=== PATIENT | female | born 1955 | race African-American/Black ===

== ENCOUNTER → 2017-06-07 | Outpatient (CLI) | payer MEDICARE, MEDICAID ==
[~2017-06-07] MED LIST: ATOR20TA65 PO; CINA30 PO; CYAN10009 PO; FOLI-43 PO; FOLI1TAB63 PO; KEPP500 PO; LAMO100T PO; MIRT15TA6 PO; NEPVIT PO; REQ1 PO; VIT B 12
== END | disposition home or self-care (01) ==
LOC: MAMMO 09:14
PROVIDERS: ATTEND Specialist
DX: Z12.31 Encounter for screening mammogram for malignant neoplasm of breast (principal)
CPT/HCPCS: G0202

== ENCOUNTER → 2017-06-23 | Outpatient (CLI) | payer MEDICARE, MEDICAID | END | disposition home or self-care (01) | LOC: MAMMO 07:49 | PROVIDERS: ATTEND Specialist | DX: R92.8 Other abnormal and inconclusive findings on diagnostic imaging of breast (principal); R92.2 Inconclusive mammogram | CPT/HCPCS: 76641; G0206 ==

== ENCOUNTER 2018-09-26 09:18 | Inpatient (IN) | payer MEDICARE, MEDICAID ==
[~2018-09-26] VITALS: Ht 170.2 cm; Wt 47.0 kg
[~2018-09-26 09:18] MED LIST changes: +ASPI-1159 PO; -FOLI-43 PO; -NEPVIT PO; -VIT B 12
[2018-09-26 11:35] LABS: BASOPHILS % 0.5 % (0.0-2.0); EOSINOPHILS % 1.4 % (0.0-5.0); HEMOGLOBIN. 12.1 g/dL (12.0-16.0); LYMPHOCYTES % 13.7 % (20.0-50.0); MEAN CORPUSCULAR HEMOGLOBIN 30.9 pg (28.0-32.0); MEAN CORPUSCULAR VOLUME 94.6 fL (81.0-99.0); MEAN PLATELET VOLUME 8.5 fl (7.4-10.4); MONOCYTES % 9.9 % (2.0-8.0); NEUTROPHILS % 74.5 % (40.0-76.0); PLATELET 127 x1000/uL (130-400); RED BLOOD CELL COUNT 3.91 mill/uL (4.2-5.4)
[2018-09-26 11:36] LABS: CHLORIDE 99 mEq/L (98-107)
[2018-09-26] MEDS ORDERED: DILTIAZEM HCL 5MG/ML 5ML VIAL IV PRN (15:00)
[2018-09-26 15:06] LABS: INR 1.2; PARTIAL THROMBOPLASTIN TIME 35.9 sec (23.4-31.0); PROTHROMBIN TIME 12.2 sec (9.1-11.1)
[2018-09-26] MEDS ORDERED: ONDANSETRON HCL 4MG/2ML INJ IV PRN (16:15)
[2018-09-26] MEDS ORDERED: ACETAMINOPHEN 325MG TABLET PO PRN (16:15)
[2018-09-26] MEDS ORDERED: LEVETIRACETAM 500MG PREMIX 100 ML IV ONE (16:15)
[2018-09-26 18:00] VITALS: BP 140/64
[2018-09-26] MEDS ORDERED: SEVELAMER CARBONATE 800 MG TABLET PO SCH (18:10)
[2018-09-26 18:37] VITALS: BP 140/64
[2018-09-26] MEDS ORDERED: LEVETIRACETAM 500MG in SODIUM CHLORIDE 0.9% 100ML IV NR (18:45)
[2018-09-26 19:17] LABS: HEMATOCRIT 37.9 % (36.0-48.0)
[2018-09-26 20:00] VITALS: BP 121/69
[2018-09-26] MEDS: LEVETIRACETAM 500MG TABLET PO SCH (21:06)
[2018-09-26] MEDS: ATORVASTATIN CALCIUM 20MG TABLET PO SCH (21:06)
[2018-09-26] MEDS: LAMOTRIGINE 100MG TABLET PO SCH (21:06)
[2018-09-26] MEDS: PANTOPRAZOLE SODIUM 40 MG/VIAL IV SCH (21:06)
[2018-09-26] MEDS: DILTIAZEM HCL 60MG TABLET PO SCH (21:06)
[2018-09-26] MEDS: ROPINIROLE HCL 1MG TABLET PO SCH (21:06)
[2018-09-27 00:05] VITALS: BP 109/56
[2018-09-27 04:00] VITALS: BP 109/82
[2018-09-27] MEDS: DILTIAZEM HCL 60MG TABLET PO SCH (05:42)
[2018-09-27] MEDS: ROPINIROLE HCL 1MG TABLET PO SCH ×2 (05:43→23:12)
[2018-09-27 06:24] LABS: BASOPHILS % 0.4 % (0.0-2.0); EOSINOPHILS % 2.3 % (0.0-5.0); HEMOGLOBIN. 11.6 g/dL (12.0-16.0); LYMPHOCYTES % 18.3 % (20.0-50.0); MEAN CORPUSCULAR HEMOGLOBIN 30.6 pg (28.0-32.0); MEAN CORPUSCULAR VOLUME 94.6 fL (81.0-99.0); MEAN PLATELET VOLUME 8.1 fl (7.4-10.4); MONOCYTES % 11.6 % (2.0-8.0); NEUTROPHILS % 67.4 % (40.0-76.0); PLATELET 132 x1000/uL (130-400); RED BLOOD CELL COUNT 3.81 mill/uL (4.2-5.4); RED CELL DISTRIBUTION WIDTH 18.8 % (11.6-14.6)
[2018-09-27 06:29] LABS: PHOSPHORUS 3.5 mg/dL (2.5-4.9)
[2018-09-27 08:00] VITALS: BP 123/71
[2018-09-27] MEDS: LAMOTRIGINE 100MG TABLET PO SCH ×2 (08:47→23:10)
[2018-09-27] MEDS: LEVETIRACETAM 500MG TABLET PO SCH ×2 (08:47→18:50)
[2018-09-27] MEDS: PANTOPRAZOLE SODIUM 40 MG/VIAL IV SCH ×2 (09:00→23:10)
[2018-09-27] MEDS ORDERED: PANTOPRAZOLE SODIUM 40 MG/VIAL IV SCH (09:00)
[2018-09-27 12:00] VITALS: BP 126/73
[2018-09-27] MEDS: DILTIAZEM HCL 30MG TABLET PO SCH ×2 (15:17→23:09)
[2018-09-27 16:00] VITALS: BP 133/73
[2018-09-27] MEDS ORDERED: SORBITOL 70% SOLN 30ML PO NR ×4 (16:00→22:00)
[2018-09-27 19:24] LABS: HEMATOCRIT 36.7 % (36.0-48.0); HEMOGLOBIN 11.9 g/dL (12.0-16.0)
[2018-09-27] MEDS ORDERED: SORBITOL 70% SOLN 30ML PO ONE (22:00)
[2018-09-27] MEDS: ATORVASTATIN CALCIUM 20MG TABLET PO SCH (23:10)
[2018-09-28] VITALS: BP 140/60
[2018-09-28 02:07] LABS: HEMATOCRIT 37.4 % (36.0-48.0); HEMOGLOBIN 12.1 g/dL (12.0-16.0)
[2018-09-28 04:00] VITALS: BP 122/73
[2018-09-28] MEDS ORDERED: SORBITOL 70% SOLN 30ML PO NR (05:00)
[2018-09-28] MEDS: DILTIAZEM HCL 30MG TABLET PO SCH ×3 (06:00→21:20)
[2018-09-28 06:44] LABS: INR 1.2; PARTIAL THROMBOPLASTIN TIME 34.7 sec (23.4-31.0); PROTHROMBIN TIME 12.1 sec (9.1-11.1)
[2018-09-28 06:51] LABS: BASOPHILS % 0.3 % (0.0-2.0); EOSINOPHILS % 1.8 % (0.0-5.0); HEMATOCRIT. 37.4 % (36.0-48.0); HEMOGLOBIN. 11.9 g/dL (12.0-16.0); LYMPHOCYTES % 12.9 % (20.0-50.0); MEAN CORPUSCULAR HEMOGLOBIN 30.2 pg (28.0-32.0); MEAN CORPUSCULAR VOLUME 95.1 fL (81.0-99.0); MONOCYTES % 11.3 % (2.0-8.0); NEUTROPHILS % 73.7 % (40.0-76.0); PLATELET 145 x1000/uL (130-400); RED BLOOD CELL COUNT 3.94 mill/uL (4.2-5.4); RED CELL DISTRIBUTION WIDTH 18.8 % (11.6-14.6)
[2018-09-28 07:03] LABS: PHOSPHORUS 3.4 mg/dL (2.5-4.9)
[2018-09-28] MEDS: LEVETIRACETAM 500MG TABLET PO SCH ×2 (08:50→17:38)
[2018-09-28] MEDS: LAMOTRIGINE 100MG TABLET PO SCH ×2 (08:50→21:24)
[2018-09-28] MEDS ORDERED: DILTIAZEM HCL 5MG/ML 5ML VIAL IV PRN (09:15)
[2018-09-28] MEDS: PANTOPRAZOLE SODIUM 40 MG/VIAL IV SCH (10:49)
[2018-09-28 11:41] VITALS: BP 131/70
[2018-09-28] MEDS ORDERED: SIMETHICONE 40 MG/0.6 ML 30ML ONE (12:36)
[2018-09-28] MEDS ORDERED: FENTANYL CITRATE/PF 50MCG/ML 2ML VIAL IV PRN (14:33)
[2018-09-28] MEDS ORDERED: MIDAZOLAM HCL 5 MG/5 ML VIAL IV PRN (14:34)
[2018-09-28] MEDS ORDERED: FENTANYL CITRATE/PF 50MCG/ML 2ML VIAL ONE (14:37)
[2018-09-28] MEDS ORDERED: MIDAZOLAM HCL 5 MG/5 ML VIAL ONE (14:37)
[2018-09-28] MEDS ORDERED: SODIUM CHLORIDE 0.9% 10ML VIAL ONE (15:38)
[2018-09-28 16:00] VITALS: BP 106/62
[2018-09-28] MEDS: ATORVASTATIN CALCIUM 20MG TABLET PO SCH (21:24)
[2018-09-28] MEDS: ROPINIROLE HCL 1MG TABLET PO SCH (21:24)
[2018-09-29 04:00] VITALS: BP 126/79
[2018-09-29 06:00] VITALS: BP 117/73
[2018-09-29] MEDS: DILTIAZEM HCL 30MG TABLET PO SCH ×2 (06:00→15:29)
[2018-09-29 07:01] LABS: BASOPHILS % 0.7 % (0.0-2.0); EOSINOPHILS % 2.9 % (0.0-5.0); HEMATOCRIT. 35.4 % (36.0-48.0); HEMOGLOBIN. 11.6 g/dL (12.0-16.0); LYMPHOCYTES % 17.6 % (20.0-50.0); MEAN CORPUSCULAR HEMOGLOBIN 31.1 pg (28.0-32.0); MEAN CORPUSCULAR VOLUME 95.2 fL (81.0-99.0); MONOCYTES % 13.2 % (2.0-8.0); NEUTROPHILS % 65.6 % (40.0-76.0); PLATELET 138 x1000/uL (130-400); RED BLOOD CELL COUNT 3.72 mill/uL (4.2-5.4)
[2018-09-29] MEDS ORDERED: OMEPRAZOLE 20MG CAPSULE EXTENDED RELEASE PO SCH (07:40)
[2018-09-29] MEDS: LAMOTRIGINE 100MG TABLET PO SCH (09:15)
[2018-09-29] MEDS: LEVETIRACETAM 500MG TABLET PO SCH (09:15)
[2018-09-29 10:00] VITALS: BP 124/78
[2018-09-29 12:00] VITALS: BP 134/69
[2018-09-29 15:38] VITALS: BP 134/69
== END 2018-09-29 16:32 | disposition home or self-care (01) | DRG 377 ==
LOC: ER 09:18 → 7WST 12:18 → EDBEDREQ 12:23 → EDBEDREQTM 12:23 → ENRESERV 16:51
PROVIDERS: ADMIT Internal Medicine; ATTEND Internal Medicine
PROC: 5A1D70Z Performance of Urinary Filtration, Intermittent, Less than 6 Hours Per Day (ICD-10-PCS; principal; 2018-09-26)
PROC: 5A1D70Z Performance of Urinary Filtration, Intermittent, Less than 6 Hours Per Day (ICD-10-PCS; 2018-09-28)
PROC: 0DB68ZX Excision of Stomach, Via Natural or Artificial Opening Endoscopic, Diagnostic (ICD-10-PCS; 2018-09-28)
PROC: 0DJD8ZZ Inspection of Lower Intestinal Tract, Via Natural or Artificial Opening Endoscopic (ICD-10-PCS; 2018-09-28)
DX: K29.01 Acute gastritis with bleeding (principal); N18.6 End stage renal disease; I13.2 Hypertensive heart and chronic kidney disease with heart failure and with stage 5 chronic kidney disease, or end stage renal disease; I42.9 Cardiomyopathy, unspecified; Z68.1 Body mass index [BMI] 19.9 or less, adult; D64.9 Anemia, unspecified; D69.6 Thrombocytopenia, unspecified; E66.9 Obesity, unspecified; E78.5 Hyperlipidemia, unspecified; E83.39 Other disorders of phosphorus metabolism; F32.9 Major depressive disorder, single episode, unspecified; G25.81 Restless legs syndrome; E83.51 Hypocalcemia; I95.9 Hypotension, unspecified; G40.909 Epilepsy, unspecified, not intractable, without status epilepticus; I25.10 Atherosclerotic heart disease of native coronary artery without angina pectoris; I48.91 Unspecified atrial fibrillation; I49.5 Sick sinus syndrome; I50.9 Heart failure, unspecified; K57.31 Diverticulosis of large intestine without perforation or abscess with bleeding; M19.011 Primary osteoarthritis, right shoulder; M19.012 Primary osteoarthritis, left shoulder; Z79.01 Long term (current) use of anticoagulants; Z79.82 Long term (current) use of aspirin; Z79.899 Other long term (current) drug therapy; Z82.41 Family history of sudden cardiac death; Z82.49 Family history of ischemic heart disease and other diseases of the circulatory system; Z86.73 Personal history of transient ischemic attack (TIA), and cerebral infarction without residual deficits; Z90.49 Acquired absence of other specified parts of digestive tract; Z95.0 Presence of cardiac pacemaker
CPT/HCPCS: 36415; 71045; 72100; 78278; 80048; 80076; 82270; 83735; 84100; 85014; 85018; 85044; 86850; 86900; 88305; 88312; 88313; 93306; 96372; 99152; 99285; A9560; C9113; J1953; J2250; J3010; J7050; G0500

== ENCOUNTER 2018-11-01 08:47 | Inpatient (IN) | payer MEDICARE, MEDICAID ==
[~2018-11-01] VITALS: Ht 170.2 cm; Wt 108.9 kg
[~2018-11-01 08:47] MED LIST changes: -ASPI-1159 PO
[2018-11-01] MEDS ORDERED: IPRATROPIUM BROMIDE (0.02%) 0.5MG/2.5ML NEB HHN STA (14:24)
[2018-11-01] MEDS: ALBUTEROL (0.083%) 2.5MG/3ML NEB HHN SCH ×3 (14:30→15:26)
[2018-11-01 15:15] LABS: HEMATOCRIT. 35.4 % (36.0-48.0); HEMOGLOBIN. 11.6 g/dL (12.0-16.0); MEAN CORPUSCULAR HEMOGLOBIN 30.2 pg (28.0-32.0); MEAN CORPUSCULAR VOLUME 92.5 fL (81.0-99.0); MEAN PLATELET VOLUME 7.4 fl (7.4-10.4); PLATELET 114 x1000/uL (130-400); RED BLOOD CELL COUNT 3.83 mill/uL (4.2-5.4); RED CELL DISTRIBUTION WIDTH 16.5 % (11.6-14.6)
[2018-11-01 15:17] LABS: INR 1.2; PROTHROMBIN TIME 11.7 sec (9.1-11.1)
[2018-11-01 15:18] LABS: CHLORIDE 95 mEq/L (98-107)
[2018-11-01] MEDS ORDERED: ASPIRIN 81MG TABLET PO ONE (15:45)
[2018-11-01 16:03] LABS: PLATELET ESTIMATE DECREASED
[2018-11-01] MEDS ORDERED: MORPHINE SULFATE 4 MG/ML CPJ (NOT FOR IM USE) IV ONE (18:15)
[2018-11-01 22:45] VITALS: BP 118/71
[2018-11-02] VITALS (7 sets, daily range): BP systolic 98–129; BP diastolic 42–76
[2018-11-02] MEDS ORDERED: IPRATROPIUM/ALBUTEROL 0.5-3(2.5)MG/3ML NEB HHN PRN ×2 (07:00→14:00)
[2018-11-02] MEDS: FOLIC ACID/VITAMIN B COMP W-C TABLET PO SCH (09:51)
[2018-11-02] MEDS: CINACALCET HCL 60MG TABLET PO SCH (09:51)
[2018-11-02] MEDS: LAMOTRIGINE 100MG TABLET PO SCH ×2 (09:51→17:21)
[2018-11-02] MEDS: SEVELAMER CARBONATE 800 MG TABLET PO SCH ×3 (09:51→17:21)
[2018-11-02] MEDS: LEVETIRACETAM 500MG TABLET PO SCH ×2 (09:51→21:11)
[2018-11-02 10:03] LABS: HEMATOCRIT. 33.7 % (36.0-48.0); HEMOGLOBIN. 11.1 g/dL (12.0-16.0); MEAN CORPUSCULAR HEMOGLOBIN 30.2 pg (28.0-32.0); MEAN CORPUSCULAR VOLUME 92.1 fL (81.0-99.0); MEAN PLATELET VOLUME 7.8 fl (7.4-10.4); PLATELET 122 x1000/uL (130-400); RED BLOOD CELL COUNT 3.66 mill/uL (4.2-5.4); RED CELL DISTRIBUTION WIDTH 16.4 % (11.6-14.6)
[2018-11-02 10:12] LABS: CHLORIDE 95 mEq/L (98-107)
[2018-11-02 10:20] LABS: PHOSPHORUS 5.8 mg/dL (2.5-4.9)
[2018-11-02] MEDS: GUAIFENESIN 200MG/10ML SUGAR FREE UDC PO PRN ×2 (10:26→17:20)
[2018-11-02] MEDS: AZITHROMYCIN 250 MG TABLET PO SCH (12:19)
[2018-11-02 14:50] LABS: PLATELET ESTIMATE SLIGHTLY DECREASED
[2018-11-02] MEDS: ATORVASTATIN CALCIUM 20MG TABLET PO SCH (21:11)
[2018-11-02] MEDS: GUAIFENESIN 600MG ER TABLET PO SCH (21:11)
[2018-11-02] MEDS: HEPARIN 5000 UNITS/ML VIAL SUBCUT SCH (21:11)
[2018-11-02] MEDS: IPRATROPIUM/ALBUTEROL 0.5-3(2.5)MG/3ML NEB HHN SCH (21:12)
[2018-11-03] VITALS: BP 106/50
[2018-11-03] MEDS: IPRATROPIUM/ALBUTEROL 0.5-3(2.5)MG/3ML NEB HHN SCH ×5 (01:48→21:20)
[2018-11-03] MEDS: ACETAMINOPHEN 325MG TABLET PO PRN (02:05)
[2018-11-03 03:33] VITALS: BP 103/60
[2018-11-03 06:51] LABS: HEMATOCRIT. 32.5 % (36.0-48.0); HEMOGLOBIN. 10.6 g/dL (12.0-16.0); MEAN CORPUSCULAR HEMOGLOBIN 30.3 pg (28.0-32.0); MEAN CORPUSCULAR VOLUME 92.7 fL (81.0-99.0); MEAN PLATELET VOLUME 7.6 fl (7.4-10.4); PLATELET 117 x1000/uL (130-400); RED BLOOD CELL COUNT 3.51 mill/uL (4.2-5.4); RED CELL DISTRIBUTION WIDTH 16.2 % (11.6-14.6)
[2018-11-03 08:00] VITALS: BP 110/64
[2018-11-03] MEDS: AZITHROMYCIN 250 MG TABLET PO SCH (08:23)
[2018-11-03] MEDS: SEVELAMER CARBONATE 800 MG TABLET PO SCH ×3 (08:23→17:40)
[2018-11-03] MEDS: LEVETIRACETAM 500MG TABLET PO SCH ×2 (08:24→21:52)
[2018-11-03] MEDS: GUAIFENESIN 600MG ER TABLET PO SCH ×2 (08:24→21:52)
[2018-11-03] MEDS: FOLIC ACID/VITAMIN B COMP W-C TABLET PO SCH (08:24)
[2018-11-03] MEDS: CINACALCET HCL 60MG TABLET PO SCH (08:24)
[2018-11-03] MEDS: LAMOTRIGINE 100MG TABLET PO SCH ×2 (08:24→17:00)
[2018-11-03] MEDS: HEPARIN 5000 UNITS/ML VIAL SUBCUT SCH ×2 (08:25→21:53)
[2018-11-03 12:00] VITALS: BP 121/76
[2018-11-03] MEDS ORDERED: BENZONATATE 100MG CAPSULE PO PRN (12:30)
[2018-11-03 13:18] LABS: PLATELET ESTIMATE DECREASED
[2018-11-03] MEDS ORDERED: PSEUDOEPHEDRINE HCL 30MG TABLET PO PRN (15:00)
[2018-11-03 16:00] VITALS: BP 118/68
[2018-11-03 20:00] VITALS: BP 120/66
[2018-11-03] MEDS: OXYMETAZOLINE HCL NASAL SPRAY 15ML BOTHNSTRLS SCH (21:50)
[2018-11-03] MEDS: ATORVASTATIN CALCIUM 20MG TABLET PO SCH (21:52)
[2018-11-04] VITALS: BP 95/51
[2018-11-04] MEDS: IPRATROPIUM/ALBUTEROL 0.5-3(2.5)MG/3ML NEB HHN SCH ×4 (01:42→22:17)
[2018-11-04] MEDS: ACETAMINOPHEN 325MG TABLET PO PRN (02:55)
[2018-11-04 03:32] VITALS: BP 100/65
[2018-11-04 07:27] LABS: BASOPHILS % 0.3 % (0.0-2.0); EOSINOPHILS % 2.5 % (0.0-5.0); HEMATOCRIT. 33.4 % (36.0-48.0); HEMOGLOBIN. 10.7 g/dL (12.0-16.0); LYMPHOCYTES % 17.4 % (20.0-50.0); MEAN CORPUSCULAR HEMOGLOBIN 29.8 pg (28.0-32.0); MEAN CORPUSCULAR VOLUME 93.3 fL (81.0-99.0); MEAN PLATELET VOLUME 7.6 fl (7.4-10.4); MONOCYTES % 13.2 % (2.0-8.0); NEUTROPHILS % 66.6 % (40.0-76.0); PLATELET 123 x1000/uL (130-400); RED BLOOD CELL COUNT 3.58 mill/uL (4.2-5.4)
[2018-11-04] MEDS: OXYMETAZOLINE HCL NASAL SPRAY 15ML BOTHNSTRLS SCH ×2 (09:00→21:17)
[2018-11-04] MEDS: LEVETIRACETAM 500MG TABLET PO SCH ×2 (10:20→21:17)
[2018-11-04] MEDS: AZITHROMYCIN 250 MG TABLET PO SCH (10:21)
[2018-11-04] MEDS: FOLIC ACID/VITAMIN B COMP W-C TABLET PO SCH (10:21)
[2018-11-04] MEDS: GUAIFENESIN 600MG ER TABLET PO SCH ×2 (10:21→21:17)
[2018-11-04] MEDS: LAMOTRIGINE 100MG TABLET PO SCH ×2 (10:21→18:43)
[2018-11-04] MEDS: CINACALCET HCL 60MG TABLET PO SCH (10:21)
[2018-11-04] MEDS: SEVELAMER CARBONATE 800 MG TABLET PO SCH ×3 (10:22→18:43)
[2018-11-04] MEDS: HEPARIN 5000 UNITS/ML VIAL SUBCUT SCH ×2 (10:22→21:17)
[2018-11-04 12:00] VITALS: BP 112/65
[2018-11-04 16:00] VITALS: BP 120/58
[2018-11-04 18:00] VITALS: BP 120/58
[2018-11-04 20:00] VITALS: BP 99/55
[2018-11-04] MEDS: ATORVASTATIN CALCIUM 20MG TABLET PO SCH (21:17)
[2018-11-05] VITALS: BP 145/53
[2018-11-05 04:00] VITALS: BP 100/57
[2018-11-05 08:00] VITALS: BP 107/61
[2018-11-05] MEDS: LEVETIRACETAM 500MG TABLET PO SCH (09:17)
[2018-11-05] MEDS: GUAIFENESIN 600MG ER TABLET PO SCH (09:17)
[2018-11-05] MEDS: SEVELAMER CARBONATE 800 MG TABLET PO SCH (09:18)
[2018-11-05] MEDS: AZITHROMYCIN 250 MG TABLET PO SCH (09:20)
[2018-11-05] MEDS: IPRATROPIUM/ALBUTEROL 0.5-3(2.5)MG/3ML NEB HHN SCH (09:20)
[2018-11-05] MEDS: LAMOTRIGINE 100MG TABLET PO SCH (09:20)
[2018-11-05] MEDS: CINACALCET HCL 60MG TABLET PO SCH (09:20)
[2018-11-05] MEDS: HEPARIN 5000 UNITS/ML VIAL SUBCUT SCH (09:24)
[2018-11-05] MEDS: FOLIC ACID/VITAMIN B COMP W-C TABLET PO SCH (09:41)
[2018-11-05 12:53] VITALS: BP 120/69
== END 2018-11-05 12:20 | disposition home or self-care (01) | DRG 291 ==
LOC: ER 08:47 → 8WST 16:48 → EDBEDREQ 16:49 → ENRESERV 21:58
PROVIDERS: ADMIT Internal Medicine; ATTEND Internal Medicine
PROC: 5A1D70Z Performance of Urinary Filtration, Intermittent, Less than 6 Hours Per Day (ICD-10-PCS; principal; 2018-11-01)
PROC: 5A1D70Z Performance of Urinary Filtration, Intermittent, Less than 6 Hours Per Day (ICD-10-PCS; 2018-11-03)
DX: I13.2 Hypertensive heart and chronic kidney disease with heart failure and with stage 5 chronic kidney disease, or end stage renal disease (principal); J96.00 Acute respiratory failure, unspecified whether with hypoxia or hypercapnia; N18.6 End stage renal disease; I50.43 Acute on chronic combined systolic (congestive) and diastolic (congestive) heart failure; D61.818 Other pancytopenia; J20.9 Acute bronchitis, unspecified; R07.81 Pleurodynia; I48.91 Unspecified atrial fibrillation; G25.81 Restless legs syndrome; E66.01 Morbid (severe) obesity due to excess calories; E78.00 Pure hypercholesterolemia, unspecified; E78.5 Hyperlipidemia, unspecified; F32.9 Major depressive disorder, single episode, unspecified; G40.909 Epilepsy, unspecified, not intractable, without status epilepticus; I25.10 Atherosclerotic heart disease of native coronary artery without angina pectoris; I27.20 Pulmonary hypertension, unspecified; J31.0 Chronic rhinitis; K57.30 Diverticulosis of large intestine without perforation or abscess without bleeding; E21.3 Hyperparathyroidism, unspecified; M19.90 Unspecified osteoarthritis, unspecified site; I95.9 Hypotension, unspecified; R04.0 Epistaxis; Z91.81 History of falling; Z99.2 Dependence on renal dialysis; Z90.49 Acquired absence of other specified parts of digestive tract; Z95.0 Presence of cardiac pacemaker; Z79.899 Other long term (current) drug therapy; Z86.73 Personal history of transient ischemic attack (TIA), and cerebral infarction without residual deficits; Z82.49 Family history of ischemic heart disease and other diseases of the circulatory system; Z68.37 Body mass index [BMI] 37.0-37.9, adult
CPT/HCPCS: 36415; 71045; 80048; 83735; 83880; 84100; 84484; 87804; 93005; 94640; 96374; 97110; 97162; 99285; J1644; J2270; J7611; J7620

== ENCOUNTER 2018-12-01 08:46 | Emergency (ER) | payer MEDICARE, MEDICAID ==
[~2018-12-01] VITALS: Ht 167.6 cm; Wt 90.0 kg
[2018-12-01] MEDS ORDERED: HYDROCODONE/ACETAMINOPHEN 5/325MG TABLET PO ONE (09:15)
[2018-12-01] MEDS ORDERED: ONDANSETRON 4MG ODT PO ONE (09:15)
[2018-12-01 11:30] VITALS: BP 125/74
== END 2018-12-01 13:06 | disposition home or self-care (01) ==
LOC: ER 08:46
DX: S52.121A Displaced fracture of head of right radius, initial encounter for closed fracture (principal); S16.1XXA Strain of muscle, fascia and tendon at neck level, initial encounter; S49.91XA Unspecified injury of right shoulder and upper arm, initial encounter; I13.2 Hypertensive heart and chronic kidney disease with heart failure and with stage 5 chronic kidney disease, or end stage renal disease; N18.6 End stage renal disease; M54.5 Low back pain; E78.00 Pure hypercholesterolemia, unspecified; R56.9 Unspecified convulsions; Z99.2 Dependence on renal dialysis; Z79.899 Other long term (current) drug therapy; V89.0XXA Person injured in unspecified motor-vehicle accident, nontraffic, initial encounter; Y93.89 Activity, other specified; Y92.89 Other specified places as the place of occurrence of the external cause; Y99.8 Other external cause status
CPT/HCPCS: 70450; 72100; 72125; 73030; 73080; 93005; 99284; Q0162; A4565

== ENCOUNTER 2018-12-30 11:36 | Emergency (ER) | payer MEDICARE, MEDICAID ==
[~2018-12-30] VITALS: Ht 170.2 cm; Wt 104.5 kg
[2018-12-30] MEDS ORDERED: SEVE800T8 PO (11:50)
[2018-12-30] MEDS ORDERED: MORPHINE SULFATE 10 MG/ML CPJ IM ONE (12:45)
[2018-12-30 14:20] VITALS: BP 90/53
[2019-02-15] MEDS ORDERED: OMEP20TA2 MT (18:10)
[2019-02-15] MEDS ORDERED: DILT60TA35 MT (18:10)
[2019-02-15] MEDS ORDERED: SIMV20TA6 MT (18:10)
[2019-02-15] MEDS ORDERED: FA/V1TAB MT (18:10)
[2019-02-15] MEDS ORDERED: MIDO10TA MT (18:10)
== END 2018-12-30 14:36 | disposition home or self-care (01) ==
LOC: ER 12:05
DX: M19.011 Primary osteoarthritis, right shoulder (principal); I13.2 Hypertensive heart and chronic kidney disease with heart failure and with stage 5 chronic kidney disease, or end stage renal disease; N18.6 End stage renal disease; I50.9 Heart failure, unspecified; M25.511 Pain in right shoulder; M54.2 Cervicalgia; V49.9XXA Car occupant (driver) (passenger) injured in unspecified traffic accident, initial encounter; Y92.9 Unspecified place or not applicable; Y93.9 Activity, unspecified; Z99.2 Dependence on renal dialysis
CPT/HCPCS: 73030; 96372; 99283; J2270

== ENCOUNTER 2019-03-21 08:14 | Inpatient (IN) | payer MEDICARE, MEDICAID ==
[~2019-03-21] VITALS: Ht 170.2 cm; Wt 97.5 kg
[~2019-03-21 08:14] MED LIST changes: +DILT60TA35 MT; +FA/V1TAB MT; +MIDO10TA MT; +OMEP20TA2 MT; +SEVE800T8 PO; +SIMV20TA6 MT
[2019-03-21] MEDS ORDERED: MORPHINE SULFATE 4 MG/ML CPJ (NOT FOR IM USE) IV STA (08:31)
[2019-03-21 09:25] LABS: BASOPHILS % 0.7 % (0.0-2.0); EOSINOPHILS % 0.6 % (0.0-5.0); HEMATOCRIT. 35.7 % (36.0-48.0); HEMOGLOBIN. 11.7 g/dL (12.0-16.0); LYMPHOCYTES % 10.5 % (20.0-50.0); MEAN CORPUSCULAR HEMOGLOBIN 29.8 pg (28.0-32.0); MEAN CORPUSCULAR VOLUME 91.1 fL (81.0-99.0); MEAN PLATELET VOLUME 8.2 fl (7.4-10.4); MONOCYTES % 10.7 % (2.0-8.0); NEUTROPHILS % 77.5 % (40.0-76.0); PLATELET 82 x1000/uL (130-400); RED BLOOD CELL COUNT 3.92 mill/uL (4.2-5.4); RED CELL DISTRIBUTION WIDTH 15.5 % (11.6-14.6)
[2019-03-21 09:34] LABS: CHLORIDE 98 mEq/L (98-107)
[2019-03-21] MEDS ORDERED: IOHEXOL-350 100 ML BOTTLE ONE (10:48)
[2019-03-21] MEDS ORDERED: ASPIRIN 325MG EC TABLET PO ONE (11:45)
[2019-03-21] MEDS ORDERED: MIDODRINE HCL 5MG TABLET PO PRN (14:15)
[2019-03-21] MEDS ORDERED: TRAMADOL 50MG TABLET PO PRN (15:30)
[2019-03-21] MEDS ORDERED: MAGNESIUM/ALUMINUM HYDROXIDE/SIMETHICONE 30ML UDC PO PRN (15:30)
[2019-03-21] MEDS ORDERED: ACETAMINOPHEN 325MG TABLET PO PRN (15:30)
[2019-03-21] MEDS ORDERED: ONDANSETRON HCL 4MG/2ML INJ IV PRN (15:30)
[2019-03-21] MEDS: DILTIAZEM HCL 30MG TABLET PO SCH ×2 (17:00→21:36)
[2019-03-21] MEDS ORDERED: SEVELAMER CARBONATE 800 MG TABLET PO SCH (17:00)
[2019-03-21] MEDS: IBUPROFEN 800MG TABLET PO SCH (17:57)
[2019-03-21] MEDS: MIDODRINE HCL 5MG TABLET PO SCH (17:58)
[2019-03-21 18:28] VITALS: BP 121/65
[2019-03-21 20:00] VITALS: BP 149/72
[2019-03-21] MEDS: SIMETHICONE 80MG TABLET CHEW PO SCH ×2 (20:12→21:36)
[2019-03-21] MEDS: SEVELAMER CARBONATE 800 MG TABLET PO SCH (20:13)
[2019-03-21] MEDS ORDERED: LEVETIRACETAM 500MG PREMIX 100 ML IV SCH (21:00)
[2019-03-21] MEDS ORDERED: LEVETIRACETAM 500MG in SODIUM CHLORIDE 0.9% 100ML IV SCH (21:00)
[2019-03-21] MEDS ORDERED: ROPINIROLE HCL 1MG TABLET PO SCH (21:00)
[2019-03-21] MEDS ORDERED: ATORVASTATIN CALCIUM 20MG TABLET PO SCH (21:00)
[2019-03-21] MEDS: LAMOTRIGINE 100MG TABLET PO SCH (21:35)
[2019-03-21] MEDS: LEVETIRACETAM 500MG TABLET PO SCH (21:35)
[2019-03-22] VITALS: BP 120/59
[2019-03-22 04:00] VITALS: BP 116/56
[2019-03-22] MEDS: DILTIAZEM HCL 30MG TABLET PO SCH (06:06)
[2019-03-22 06:59] LABS: BASOPHILS % 0.4 % (0.0-2.0); EOSINOPHILS % 1.6 % (0.0-5.0); HEMATOCRIT. 36.3 % (36.0-48.0); HEMOGLOBIN. 11.8 g/dL (12.0-16.0); LYMPHOCYTES % 16.3 % (20.0-50.0); MEAN CORPUSCULAR HEMOGLOBIN 29.8 pg (28.0-32.0); MEAN CORPUSCULAR VOLUME 91.5 fL (81.0-99.0); MEAN PLATELET VOLUME 8.6 fl (7.4-10.4); MONOCYTES % 12.6 % (2.0-8.0); NEUTROPHILS % 69.1 % (40.0-76.0); PLATELET 86 x1000/uL (130-400); RED BLOOD CELL COUNT 3.96 mill/uL (4.2-5.4); RED CELL DISTRIBUTION WIDTH 15.6 % (11.6-14.6)
[2019-03-22 07:15] LABS: CHLORIDE 101 mEq/L (98-107)
[2019-03-22 07:21] LABS: PHOSPHORUS 4.4 mg/dL (2.5-4.9)
[2019-03-22] MEDS ORDERED: OMEPRAZOLE 20MG CAPSULE EXTENDED RELEASE PO SCH (07:40)
[2019-03-22 08:00] VITALS: BP 131/86
[2019-03-22] MEDS ORDERED: FOLIC ACID/VITAMIN B COMP W-C TABLET PO SCH ×2 (09:00)
[2019-03-22] MEDS: LEVETIRACETAM 500MG TABLET PO SCH (09:22)
[2019-03-22] MEDS: SIMETHICONE 80MG TABLET CHEW PO SCH (09:23)
[2019-03-22] MEDS: LAMOTRIGINE 100MG TABLET PO SCH (09:24)
[2019-03-22] MEDS: IBUPROFEN 800MG TABLET PO SCH (09:24)
[2019-03-22] MEDS: MIDODRINE HCL 5MG TABLET PO SCH (09:25)
[2019-03-22] MEDS: SEVELAMER CARBONATE 800 MG TABLET PO SCH (09:32)
[2019-03-22 12:00] VITALS: BP 121/77
[2019-03-22 15:56] VITALS: BP 130/84
== END 2019-03-22 16:52 | disposition home or self-care (01) | DRG 553 ==
LOC: ER 08:14 → 7WST 11:34 → ENRESERV 12:23 → CANRESERV 12:23 → ENRESERV 15:17
PROVIDERS: ADMIT Internal Medicine; ATTEND Internal Medicine
PROC: 5A1D70Z Performance of Urinary Filtration, Intermittent, Less than 6 Hours Per Day (ICD-10-PCS; principal; 2019-03-21)
DX: M19.011 Primary osteoarthritis, right shoulder (principal); N18.6 End stage renal disease; I13.2 Hypertensive heart and chronic kidney disease with heart failure and with stage 5 chronic kidney disease, or end stage renal disease; I42.9 Cardiomyopathy, unspecified; I50.40 Unspecified combined systolic (congestive) and diastolic (congestive) heart failure; N25.81 Secondary hyperparathyroidism of renal origin; E87.1 Hypo-osmolality and hyponatremia; R07.89 Other chest pain; D64.9 Anemia, unspecified; D69.6 Thrombocytopenia, unspecified; E11.22 Type 2 diabetes mellitus with diabetic chronic kidney disease; E78.00 Pure hypercholesterolemia, unspecified; E78.5 Hyperlipidemia, unspecified; E83.39 Other disorders of phosphorus metabolism; F32.9 Major depressive disorder, single episode, unspecified; G25.81 Restless legs syndrome; G40.909 Epilepsy, unspecified, not intractable, without status epilepticus; G89.29 Other chronic pain; I25.10 Atherosclerotic heart disease of native coronary artery without angina pectoris; I27.20 Pulmonary hypertension, unspecified; E66.9 Obesity, unspecified; I48.0 Paroxysmal atrial fibrillation; I95.89 Other hypotension; K21.9 Gastro-esophageal reflux disease without esophagitis; M19.90 Unspecified osteoarthritis, unspecified site; Z79.899 Other long term (current) drug therapy; Z82.49 Family history of ischemic heart disease and other diseases of the circulatory system; Z86.73 Personal history of transient ischemic attack (TIA), and cerebral infarction without residual deficits; Z95.0 Presence of cardiac pacemaker; Z99.2 Dependence on renal dialysis; Z90.49 Acquired absence of other specified parts of digestive tract; Z68.33 Body mass index [BMI] 33.0-33.9, adult
CPT/HCPCS: 36415; 71045; 71275; 72070; 80048; 83735; 83880; 84100; 84484; 93005; 96374; 99285; J1953; J2270; J7050; Q9967

== ENCOUNTER → 2019-08-14 | Outpatient (CLI) | payer MEDICARE, MEDICAID ==
[~2019-08-14] MED LIST changes: +CINA60 PO; +CYAN-33 PO; +CYAN-50 PO; -CYAN10009 PO; +DILT30TA3 PO; +FA/V1TAB PO; +MIDO10TA PO; +OMEP20CA5 PO; +SIMV20TA6 PO; +[UNRECOGNIZED DRUG - CODE] PO
== END | disposition home or self-care (01) ==
LOC: MAMMO 12:01
PROVIDERS: ATTEND Internal Medicine
DX: Z12.31 Encounter for screening mammogram for malignant neoplasm of breast (principal)
CPT/HCPCS: 77067

== ENCOUNTER 2019-09-13 12:51 | Inpatient (IN) | payer MEDICARE, MEDICAID ==
[~2019-09-13] VITALS: Ht 170.2 cm; Wt 85.7 kg
[~2019-09-13 12:51] MED LIST changes: -ATOR20TA65 PO; -CINA60 PO; -CYAN-50 PO; -DILT60TA35 MT; -FA/V1TAB MT; -FA/V1TAB PO; -MIDO10TA MT; -OMEP20TA2 MT; -SIMV20TA6 MT; -[UNRECOGNIZED DRUG - CODE] PO
[2019-09-13] MEDS ORDERED: ALBUTEROL (0.083%) 2.5MG/3ML NEB HHN STA (13:35)
[2019-09-13] MEDS ORDERED: IPRATROPIUM BROMIDE (0.02%) 0.5MG/2.5ML NEB HHN STA (13:35)
[2019-09-13 14:31] LABS: BASOPHILS % 0.6 % (0.0-2.0); EOSINOPHILS % 0.3 % (0.0-5.0); HEMATOCRIT. 35.9 % (36.0-48.0); HEMOGLOBIN. 11.8 g/dL (12.0-16.0); LYMPHOCYTES % 9.2 % (20.0-50.0); MEAN CORPUSCULAR HEMOGLOBIN 29.6 pg (28.0-32.0); MEAN CORPUSCULAR VOLUME 89.7 fL (81.0-99.0); NEUTROPHILS % 75.9 % (40.0-76.0); PLATELET 96 x1000/uL (130-400)
[2019-09-13 14:38] LABS: CHLORIDE 107 mEq/L (98-107)
[2019-09-13] MEDS ORDERED: NITROGLYCERIN 0.4MG TABLET SL SL ONE (15:30)
[2019-09-13] MEDS ORDERED: ACETAMINOPHEN 325MG TABLET PO ONE (15:30)
[2019-09-13] MEDS ORDERED: ASPIRIN 325MG TABLET PO ONE (15:30)
[2019-09-13] MEDS ORDERED: ONDANSETRON HCL 4MG/2ML INJ IV PRN (23:00)
[2019-09-13] MEDS ORDERED: ENOXAPARIN 40MG/0.4ML SYR SUBCUT SCH (23:00)
[2019-09-14] VITALS (7 sets, daily range): BP systolic 106–156; BP diastolic 60–84
[2019-09-14 09:39] LABS: HEMATOCRIT. 34.5 % (36.0-48.0); HEMOGLOBIN. 11.4 g/dL (12.0-16.0); MEAN CORPUSCULAR HEMOGLOBIN 29.5 pg (28.0-32.0); MEAN CORPUSCULAR VOLUME 89.4 fL (81.0-99.0); MEAN PLATELET VOLUME 8.3 fl (7.4-10.4); PLATELET 94 x1000/uL (130-400); RED BLOOD CELL COUNT 3.86 mill/uL (4.2-5.4); RED CELL DISTRIBUTION WIDTH 16.2 % (11.6-14.6)
[2019-09-14] MEDS: POLYETHYLENE GLYCOL 3350 (17GM) 1 DOSE PACK PO SCH (09:48)
[2019-09-14] MEDS: FOLIC ACID/VITAMIN B COMP W-C TABLET PO SCH (09:53)
[2019-09-14] MEDS: MIDODRINE HCL 5MG TABLET PO SCH ×2 (11:09→17:41)
[2019-09-14 11:11] LABS: PLATELET ESTIMATE SLIGHTLY DECREASED
[2019-09-14] MEDS ORDERED: GUAIFENESIN 200MG/10ML SUGAR FREE UDC PO PRN (11:30)
[2019-09-14] MEDS: DILTIAZEM HCL 30MG TABLET PO SCH ×2 (14:00→21:43)
[2019-09-14] MEDS: PREDNISONE 20MG TABLET PO SCH (17:42)
[2019-09-14] MEDS: FAMOTIDINE 20MG/2ML VIAL IV SCH (17:42)
[2019-09-14] MEDS: MONTELUKAST SODIUM 10MG TABLET PO SCH (17:42)
[2019-09-14] MEDS: ACETAMINOPHEN 325MG TABLET PO PRN (18:45)
[2019-09-14] MEDS: LEVETIRACETAM 500MG TABLET PO SCH (20:13)
[2019-09-14] MEDS: ROPINIROLE HCL 1MG TABLET PO SCH (20:13)
[2019-09-14] MEDS: MIRTAZAPINE 15MG TABLET PO SCH (20:14)
[2019-09-14] MEDS: ATORVASTATIN CALCIUM 20MG TABLET PO SCH (20:14)
[2019-09-14] MEDS: LAMOTRIGINE 100MG TABLET PO SCH (20:14)
[2019-09-14] MEDS: LORATADINE 10MG TABLET PO SCH (20:14)
[2019-09-14] MEDS: FLUTICASONE PROPIONATE 50MCG/SPRAY BOTTLE BOTHNSTRLS SCH (20:15)
[2019-09-14] MEDS ORDERED: OXYMETAZOLINE HCL NASAL SPRAY 15ML BOTHNSTRLS SCH (21:00)
[2019-09-14] MEDS: BENZONATATE 100MG CAPSULE PO PRN (21:53)
[2019-09-15] VITALS: BP 138/76
[2019-09-15 04:00] VITALS: BP 133/75
[2019-09-15] MEDS: DILTIAZEM HCL 30MG TABLET PO SCH ×3 (05:51→20:57)
[2019-09-15 07:07] LABS: BASOPHILS % 0.2 % (0.0-2.0); HEMOGLOBIN. 11.5 g/dL (12.0-16.0); LYMPHOCYTES % 16.2 % (20.0-50.0); MEAN CORPUSCULAR HEMOGLOBIN 29.5 pg (28.0-32.0); MEAN CORPUSCULAR VOLUME 90.1 fL (81.0-99.0); MEAN PLATELET VOLUME 8.7 fl (7.4-10.4); MONOCYTES % 3.7 % (2.0-8.0); NEUTROPHILS % 79.9 % (40.0-76.0); PLATELET 99 x1000/uL (130-400); RED BLOOD CELL COUNT 3.89 mill/uL (4.2-5.4); RED CELL DISTRIBUTION WIDTH 16.5 % (11.6-14.6)
[2019-09-15 07:11] LABS: CHLORIDE 105 mEq/L (98-107)
[2019-09-15 07:24] LABS: PHOSPHORUS 3.3 mg/dL (2.5-4.9)
[2019-09-15] MEDS ORDERED: OMEPRAZOLE 20MG CAPSULE EXTENDED RELEASE PO SCH (07:40)
[2019-09-15 08:00] VITALS: BP 132/76
[2019-09-15] MEDS: MIDODRINE HCL 5MG TABLET PO SCH ×3 (09:00→17:00)
[2019-09-15] MEDS: PREDNISONE 20MG TABLET PO SCH (10:45)
[2019-09-15] MEDS: FAMOTIDINE 20MG/2ML VIAL IV SCH (10:46)
[2019-09-15] MEDS: LEVETIRACETAM 500MG TABLET PO SCH ×2 (10:46→20:56)
[2019-09-15] MEDS: FLUTICASONE PROPIONATE 50MCG/SPRAY BOTTLE BOTHNSTRLS SCH (10:46)
[2019-09-15] MEDS: FOLIC ACID/VITAMIN B COMP W-C TABLET PO SCH (10:46)
[2019-09-15] MEDS: LAMOTRIGINE 100MG TABLET PO SCH ×2 (10:46→20:56)
[2019-09-15] MEDS: POLYETHYLENE GLYCOL 3350 (17GM) 1 DOSE PACK PO SCH (10:46)
[2019-09-15 12:00] VITALS: BP 121/73
[2019-09-15] MEDS ORDERED: PHENYLEPHRINE HCL 1% 15 ML NASAL SPRAY BOTHNSTRLS PRN (13:30)
[2019-09-15 16:00] VITALS: BP 126/77
[2019-09-15] MEDS: MONTELUKAST SODIUM 10MG TABLET PO SCH (17:29)
[2019-09-15] MEDS: PHENYLEPHRINE HCL 1% 15 ML NASAL SPRAY LEFTNSTRL SCH ×2 (17:31→23:39)
[2019-09-15 20:00] VITALS: BP 148/86
[2019-09-15] MEDS: ROPINIROLE HCL 1MG TABLET PO SCH (20:56)
[2019-09-15] MEDS: OXYMETAZOLINE HCL NASAL SPRAY 15ML BOTHNSTRLS SCH (20:56)
[2019-09-15] MEDS: LORATADINE 10MG TABLET PO SCH (20:57)
[2019-09-15] MEDS: MIRTAZAPINE 15MG TABLET PO SCH (20:57)
[2019-09-15] MEDS: ATORVASTATIN CALCIUM 20MG TABLET PO SCH (20:57)
[2019-09-15] MEDS ORDERED: BENZONATATE 100MG CAPSULE PO NR (21:00)
[2019-09-16] VITALS: BP 144/89
[2019-09-16 04:00] VITALS: BP 121/77
[2019-09-16] MEDS: DILTIAZEM HCL 30MG TABLET PO SCH ×3 (05:17→21:03)
[2019-09-16] MEDS: PHENYLEPHRINE HCL 1% 15 ML NASAL SPRAY LEFTNSTRL SCH ×2 (05:17→12:35)
[2019-09-16 07:08] LABS: BASOPHILS % 0.2 % (0.0-2.0); HEMATOCRIT. 34.4 % (36.0-48.0); HEMOGLOBIN. 11.3 g/dL (12.0-16.0); LYMPHOCYTES % 15.3 % (20.0-50.0); MEAN CORPUSCULAR HEMOGLOBIN 29.4 pg (28.0-32.0); MEAN CORPUSCULAR VOLUME 89.3 fL (81.0-99.0); MEAN PLATELET VOLUME 8.8 fl (7.4-10.4); NEUTROPHILS % 75.5 % (40.0-76.0); PLATELET 111 x1000/uL (130-400); RED BLOOD CELL COUNT 3.85 mill/uL (4.2-5.4); RED CELL DISTRIBUTION WIDTH 16.7 % (11.6-14.6)
[2019-09-16 07:13] LABS: CHLORIDE 107 mEq/L (98-107)
[2019-09-16 07:24] LABS: PHOSPHORUS 3.5 mg/dL (2.5-4.9)
[2019-09-16 08:00] VITALS: BP 166/86
[2019-09-16] MEDS: FAMOTIDINE 20MG/2ML VIAL IV SCH (08:53)
[2019-09-16] MEDS: POLYETHYLENE GLYCOL 3350 (17GM) 1 DOSE PACK PO SCH (08:53)
[2019-09-16] MEDS: MIDODRINE HCL 5MG TABLET PO SCH ×3 (08:54→12:35)
[2019-09-16] MEDS: FOLIC ACID/VITAMIN B COMP W-C TABLET PO SCH (08:54)
[2019-09-16] MEDS: LEVETIRACETAM 500MG TABLET PO SCH ×2 (08:54→20:43)
[2019-09-16] MEDS: LAMOTRIGINE 100MG TABLET PO SCH ×2 (08:54→20:43)
[2019-09-16] MEDS: PREDNISONE 20MG TABLET PO SCH (08:55)
[2019-09-16] MEDS: OXYMETAZOLINE HCL NASAL SPRAY 15ML BOTHNSTRLS SCH ×2 (08:55→20:43)
[2019-09-16 12:00] VITALS: BP 130/73
[2019-09-16] MEDS: ACETAMINOPHEN 325MG TABLET PO PRN (12:22)
[2019-09-16] MEDS: MIDODRINE HCL 2.5MG TABLET PO SCH ×2 (13:00→17:53)
[2019-09-16 16:00] VITALS: BP 133/81
[2019-09-16] MEDS: MONTELUKAST SODIUM 10MG TABLET PO SCH (17:52)
[2019-09-16 20:00] VITALS: BP 137/90
[2019-09-16] MEDS: ROPINIROLE HCL 1MG TABLET PO SCH (20:43)
[2019-09-16] MEDS: BENZONATATE 100MG CAPSULE PO PRN (20:43)
[2019-09-16] MEDS: LORATADINE 10MG TABLET PO SCH (20:43)
[2019-09-16] MEDS: ATORVASTATIN CALCIUM 20MG TABLET PO SCH (20:43)
[2019-09-16] MEDS: MIRTAZAPINE 15MG TABLET PO SCH (20:44)
[2019-09-17] VITALS: BP 130/83
[2019-09-17 04:00] VITALS: BP 134/85
[2019-09-17] MEDS: DILTIAZEM HCL 30MG TABLET PO SCH ×2 (05:17→13:19)
[2019-09-17 07:52] LABS: BASOPHILS % 0.1 % (0.0-2.0); HEMATOCRIT. 37.5 % (36.0-48.0); HEMOGLOBIN. 12.3 g/dL (12.0-16.0); LYMPHOCYTES % 14.2 % (20.0-50.0); MEAN CORPUSCULAR HEMOGLOBIN 29.4 pg (28.0-32.0); MEAN CORPUSCULAR VOLUME 89.8 fL (81.0-99.0); MEAN PLATELET VOLUME 8.4 fl (7.4-10.4); NEUTROPHILS % 75.7 % (40.0-76.0); PLATELET 118 x1000/uL (130-400); RED BLOOD CELL COUNT 4.17 mill/uL (4.2-5.4); RED CELL DISTRIBUTION WIDTH 16.7 % (11.6-14.6)
[2019-09-17 08:00] VITALS: BP 126/72
[2019-09-17 08:46] LABS: PHOSPHORUS 3.3 mg/dL (2.5-4.9)
[2019-09-17] MEDS: POLYETHYLENE GLYCOL 3350 (17GM) 1 DOSE PACK PO SCH ×2 (09:37→09:38)
[2019-09-17] MEDS: MIDODRINE HCL 2.5MG TABLET PO SCH ×3 (09:38→17:00)
[2019-09-17] MEDS: OXYMETAZOLINE HCL NASAL SPRAY 15ML BOTHNSTRLS SCH (09:38)
[2019-09-17] MEDS: LAMOTRIGINE 100MG TABLET PO SCH (09:38)
[2019-09-17] MEDS: FOLIC ACID/VITAMIN B COMP W-C TABLET PO SCH (09:38)
[2019-09-17] MEDS: LEVETIRACETAM 500MG TABLET PO SCH (09:38)
[2019-09-17] MEDS: PREDNISONE 20MG TABLET PO SCH (09:38)
[2019-09-17] MEDS: FAMOTIDINE 20MG/2ML VIAL IV SCH (09:38)
[2019-09-17] MEDS: BENZONATATE 100MG CAPSULE PO PRN (09:55)
[2019-09-17 12:00] VITALS: BP 136/76
[2019-09-17 16:00] VITALS: BP 150/85
[2019-09-17 16:50] VITALS: BP 150/85
[2019-09-17] MEDS: MONTELUKAST SODIUM 10MG TABLET PO SCH (17:49)
[2019-09-17] MEDS ORDERED: MIDO2.5T PO (18:03)
[2019-09-17] MEDS ORDERED: MONT10TA21 PO (18:06)
[2019-09-17] MEDS ORDERED: LORA10CA PO (18:08)
== END 2019-09-17 18:59 | disposition home or self-care (01) | DRG 291 ==
LOC: ER 13:13 → 7WST 17:15 → ENRESERV 20:38
PROVIDERS: ADMIT Internal Medicine; ATTEND Internal Medicine
PROC: 5A1D70Z Performance of Urinary Filtration, Intermittent, Less than 6 Hours Per Day (ICD-10-PCS; principal; 2019-09-14)
PROC: 5A1D70Z Performance of Urinary Filtration, Intermittent, Less than 6 Hours Per Day (ICD-10-PCS; 2019-09-16)
DX: I13.2 Hypertensive heart and chronic kidney disease with heart failure and with stage 5 chronic kidney disease, or end stage renal disease (principal); J96.00 Acute respiratory failure, unspecified whether with hypoxia or hypercapnia; I50.33 Acute on chronic diastolic (congestive) heart failure; N18.6 End stage renal disease; I48.19 Other persistent atrial fibrillation; N25.81 Secondary hyperparathyroidism of renal origin; I42.8 Other cardiomyopathies; Z99.2 Dependence on renal dialysis; J00 Acute nasopharyngitis [common cold]; R07.9 Chest pain, unspecified; M25.511 Pain in right shoulder; J45.909 Unspecified asthma, uncomplicated; I87.8 Other specified disorders of veins; I49.5 Sick sinus syndrome; I25.10 Atherosclerotic heart disease of native coronary artery without angina pectoris; G89.4 Chronic pain syndrome; E78.5 Hyperlipidemia, unspecified; I95.89 Other hypotension; K21.9 Gastro-esophageal reflux disease without esophagitis; M19.90 Unspecified osteoarthritis, unspecified site; R04.0 Epistaxis; D63.1 Anemia in chronic kidney disease; G25.81 Restless legs syndrome; G40.909 Epilepsy, unspecified, not intractable, without status epilepticus; D69.6 Thrombocytopenia, unspecified; E78.00 Pure hypercholesterolemia, unspecified; E83.39 Other disorders of phosphorus metabolism; Z82.49 Family history of ischemic heart disease and other diseases of the circulatory system; Z86.74 Personal history of sudden cardiac arrest; Z90.49 Acquired absence of other specified parts of digestive tract; Z95.0 Presence of cardiac pacemaker; Z79.899 Other long term (current) drug therapy
CPT/HCPCS: 36415; 71045; 71046; 80048; 80053; 83735; 83880; 84100; 84484; 85025; 87804; 93005; 94640; 99285; J3490; J7512; J7611

== ENCOUNTER 2019-11-15 07:47 | Inpatient (IN) | payer MEDICARE, MEDICAID ==
[~2019-11-15] VITALS: Ht 170.2 cm; Wt 93.0 kg
[~2019-11-15 07:47] MED LIST changes: -LAMO100T PO; +LAMO100T16 PO; -MIDO10TA PO; +OMEP20CA14 PO; -OMEP20CA5 PO; +SIMV-43 PO; -SIMV20TA6 PO
[2019-11-15] MEDS ORDERED: SODIUM CHLORIDE 0.9% 1,000 ML IV ONE (08:31)
[2019-11-15 08:48] LABS: BASOPHILS % 0.6 % (0.0-2.0); HEMATOCRIT. 23.6 % (36.0-48.0); HEMOGLOBIN. 7.9 g/dL (12.0-16.0); MEAN CORPUSCULAR HEMOGLOBIN 30.8 pg (28.0-32.0); MEAN CORPUSCULAR VOLUME 91.4 fL (81.0-99.0); MEAN PLATELET VOLUME 8.1 fl (7.4-10.4); MONOCYTES % 9.3 % (2.0-8.0); NEUTROPHILS % 77.1 % (40.0-76.0); PLATELET 194 x1000/uL (130-400); RED BLOOD CELL COUNT 2.58 mill/uL (4.2-5.4); RED CELL DISTRIBUTION WIDTH 16.5 % (11.6-14.6)
[2019-11-15 08:53] LABS: CHLORIDE 97 mEq/L (98-107)
[2019-11-15] MEDS: CALCIUM CARBONATE 1250MG TABLET (500MG ELEMENTAL CALCIUM) PO SCH ×2 (11:30→17:00)
[2019-11-15] MEDS: MIDODRINE HCL 5MG TABLET PO SCH ×2 (11:30→17:00)
[2019-11-15] MEDS: CINACALCET HCL 30MG TABLET PO SCH (11:30)
[2019-11-15] MEDS: HYDROCODONE/ACETAMINOPHEN 5/325MG TABLET PO PRN ×2 (12:16→23:28)
[2019-11-15] MEDS ORDERED: ONDANSETRON HCL 4MG/2ML INJ IV PRN (14:30)
[2019-11-15] MEDS ORDERED: MAGNESIUM/ALUMINUM HYDROXIDE/SIMETHICONE 30ML UDC PO PRN (14:30)
[2019-11-15] MEDS ORDERED: DIPHENHYDRAMINE 50MG/ML VIAL IV PRN (14:30)
[2019-11-15] MEDS ORDERED: IPRATROPIUM/ALBUTEROL 0.5-3(2.5)MG/3ML NEB HHN PRN (14:30)
[2019-11-15] MEDS ORDERED: ACETAMINOPHEN 325MG TABLET PO PRN (14:30)
[2019-11-15] MEDS ORDERED: CLONIDINE 0.1MG TABLET PO PRN (14:30)
[2019-11-15 15:45] LABS: INR 1.2; PROTHROMBIN TIME 12.7 sec (9.6-11.0)
[2019-11-15] MEDS ORDERED: PANTOPRAZOLE SODIUM 40 MG/VIAL IV SCH (17:00)
[2019-11-15 17:09] LABS: TOTAL IRON BINDING CAPACITY 305 ug/dL (250-450)
[2019-11-15] MEDS ORDERED: LEVETIRACETAM 500MG TABLET PO NR (21:45)
[2019-11-15] MEDS ORDERED: LAMOTRIGINE 100MG TABLET PO NR (21:45)
[2019-11-16 05:31] LABS: BASOPHILS % 0.6 % (0.0-2.0); EOSINOPHILS % 2.1 % (0.0-5.0); HEMATOCRIT. 22.3 % (36.0-48.0); HEMOGLOBIN. 7.4 g/dL (12.0-16.0); LYMPHOCYTES % 14.7 % (20.0-50.0); MEAN CORPUSCULAR HEMOGLOBIN 30.9 pg (28.0-32.0); MEAN CORPUSCULAR VOLUME 92.6 fL (81.0-99.0); MEAN PLATELET VOLUME 7.3 fl (7.4-10.4); MONOCYTES % 11.2 % (2.0-8.0); NEUTROPHILS % 71.4 % (40.0-76.0); PLATELET 193 x1000/uL (130-400); RED BLOOD CELL COUNT 2.41 mill/uL (4.2-5.4); RED CELL DISTRIBUTION WIDTH 16.4 % (11.6-14.6)
[2019-11-16 05:43] LABS: CHLORIDE 99 mEq/L (98-107)
[2019-11-16 05:50] LABS: PHOSPHORUS 3.4 mg/dL (2.5-4.9)
[2019-11-16 08:00] VITALS: BP 99/58
[2019-11-16] MEDS ORDERED: ROPINIROLE HCL 1MG TABLET PO SCH (09:00)
[2019-11-16] MEDS: LEVETIRACETAM 500MG/5ML CUP PO SCH ×2 (09:37→21:16)
[2019-11-16] MEDS: MIDODRINE HCL 5MG TABLET PO SCH ×3 (09:37→16:06)
[2019-11-16] MEDS: CINACALCET HCL 30MG TABLET PO SCH (09:37)
[2019-11-16] MEDS: PANTOPRAZOLE SODIUM 40 MG/VIAL IV SCH ×2 (09:37→21:13)
[2019-11-16] MEDS: CALCIUM CARBONATE 1250MG TABLET (500MG ELEMENTAL CALCIUM) PO SCH ×2 (09:37→16:06)
[2019-11-16] MEDS: LAMOTRIGINE 100MG TABLET PO SCH ×2 (09:43→21:16)
[2019-11-16 10:32] VITALS: BP 99/58
[2019-11-16 11:59] VITALS: BP 125/63
[2019-11-16] MEDS: SODIUM CHLORIDE 0.9% INJ 3ML FLUSH IVF SCH ×2 (13:10→21:14)
[2019-11-16 16:01] VITALS: BP 85/54
[2019-11-16 20:00] VITALS: BP 98/39
[2019-11-16] MEDS ORDERED: EPOETIN ALFA 10000UNITS/ML VIAL SUBCUT SCH (21:00)
[2019-11-16] MEDS: ATORVASTATIN CALCIUM 20MG TABLET PO SCH (21:16)
[2019-11-16] MEDS: ZOLPIDEM TARTRATE 5MG TABLET PO PRN (21:16)
[2019-11-17] VITALS (11 sets, daily range): BP systolic 97–123; BP diastolic 46–98
[2019-11-17 06:43] LABS: BASOPHILS % 0.7 % (0.0-2.0); LYMPHOCYTES % 17.9 % (20.0-50.0); MEAN CORPUSCULAR HEMOGLOBIN 30.8 pg (28.0-32.0); MEAN CORPUSCULAR VOLUME 93.7 fL (81.0-99.0); MEAN PLATELET VOLUME 7.2 fl (7.4-10.4); MONOCYTES % 12.5 % (2.0-8.0); NEUTROPHILS % 66.9 % (40.0-76.0); PLATELET 187 x1000/uL (130-400); RED BLOOD CELL COUNT 2.29 mill/uL (4.2-5.4); RED CELL DISTRIBUTION WIDTH 16.8 % (11.6-14.6)
[2019-11-17] MEDS: SODIUM CHLORIDE 0.9% INJ 3ML FLUSH IVF SCH ×3 (06:43→20:52)
[2019-11-17 06:50] LABS: HEMATOCRIT. 21.4 % (36.0-48.0)
[2019-11-17 07:12] LABS: PHOSPHORUS 2.7 mg/dL (2.5-4.9)
[2019-11-17] MEDS: CINACALCET HCL 30MG TABLET PO SCH (11:47)
[2019-11-17] MEDS: LEVETIRACETAM 500MG/5ML CUP PO SCH ×2 (11:47→20:47)
[2019-11-17] MEDS: CALCIUM CARBONATE 1250MG TABLET (500MG ELEMENTAL CALCIUM) PO SCH ×2 (11:48→17:35)
[2019-11-17] MEDS: LAMOTRIGINE 100MG TABLET PO SCH ×2 (11:48→21:05)
[2019-11-17] MEDS: MIDODRINE HCL 5MG TABLET PO SCH ×3 (11:48→17:35)
[2019-11-17] MEDS: PANTOPRAZOLE SODIUM 40 MG/VIAL IV SCH ×2 (14:17→20:47)
[2019-11-17] MEDS: SUCRALFATE 1 G/10 ML UDC PO SCH ×2 (17:36→20:47)
[2019-11-17] MEDS: HYDROCODONE/ACETAMINOPHEN 5/325MG TABLET PO PRN (20:18)
[2019-11-17] MEDS: ROPINIROLE HCL 1MG TABLET PO SCH ×2 (20:48→20:51)
[2019-11-17] MEDS: ATORVASTATIN CALCIUM 20MG TABLET PO SCH (20:48)
[2019-11-17] MEDS: ZOLPIDEM TARTRATE 5MG TABLET PO PRN (22:49)
[2019-11-18] VITALS: BP 90/49
[2019-11-18 04:00] VITALS: BP 99/49
[2019-11-18] MEDS: SODIUM CHLORIDE 0.9% INJ 3ML FLUSH IVF SCH (06:36)
[2019-11-18 07:29] LABS: BASOPHILS % 0.3 % (0.0-2.0); EOSINOPHILS % 1.7 % (0.0-5.0); HEMATOCRIT. 22.6 % (36.0-48.0); HEMOGLOBIN. 7.6 g/dL (12.0-16.0); LYMPHOCYTES % 12.7 % (20.0-50.0); MEAN CORPUSCULAR HEMOGLOBIN 30.7 pg (28.0-32.0); MEAN CORPUSCULAR VOLUME 91.7 fL (81.0-99.0); MEAN PLATELET VOLUME 7.1 fl (7.4-10.4); MONOCYTES % 10.4 % (2.0-8.0); NEUTROPHILS % 74.9 % (40.0-76.0); PLATELET 191 x1000/uL (130-400); RED BLOOD CELL COUNT 2.46 mill/uL (4.2-5.4)
[2019-11-18 08:00] VITALS: BP 111/57
[2019-11-18] MEDS: CALCIUM CARBONATE 1250MG TABLET (500MG ELEMENTAL CALCIUM) PO SCH (08:31)
[2019-11-18] MEDS: PANTOPRAZOLE SODIUM 40 MG/VIAL IV SCH (08:31)
[2019-11-18] MEDS: LEVETIRACETAM 500MG/5ML CUP PO SCH (08:31)
[2019-11-18] MEDS: SUCRALFATE 1 G/10 ML UDC PO SCH (08:31)
[2019-11-18] MEDS: MIDODRINE HCL 5MG TABLET PO SCH ×2 (08:32→12:51)
[2019-11-18] MEDS: LAMOTRIGINE 100MG TABLET PO SCH (08:32)
[2019-11-18] MEDS: CINACALCET HCL 30MG TABLET PO SCH (08:45)
[2019-11-18 12:00] VITALS: BP 106/54
[2019-11-18 13:30] VITALS: BP 106/54
== END 2019-11-18 15:08 | disposition home or self-care (01) | DRG 377 ==
LOC: ER 07:47 → 7WST 10:36 → ENRESERV 11-16 07:45
PROVIDERS: ADMIT Internal Medicine; ATTEND Internal Medicine
PROC: 30233N1 Transfusion of Nonautologous Red Blood Cells into Peripheral Vein, Percutaneous Approach (ICD-10-PCS; principal; 2019-11-17)
PROC: 5A1D70Z Performance of Urinary Filtration, Intermittent, Less than 6 Hours Per Day (ICD-10-PCS; 2019-11-18)
DX: K29.01 Acute gastritis with bleeding (principal); N18.6 End stage renal disease; E44.0 Moderate protein-calorie malnutrition; E87.1 Hypo-osmolality and hyponatremia; I13.2 Hypertensive heart and chronic kidney disease with heart failure and with stage 5 chronic kidney disease, or end stage renal disease; I42.9 Cardiomyopathy, unspecified; I48.20 Chronic atrial fibrillation, unspecified; I50.22 Chronic systolic (congestive) heart failure; N25.81 Secondary hyperparathyroidism of renal origin; K57.30 Diverticulosis of large intestine without perforation or abscess without bleeding; R07.89 Other chest pain; D64.9 Anemia, unspecified; E78.00 Pure hypercholesterolemia, unspecified; E78.5 Hyperlipidemia, unspecified; E83.39 Other disorders of phosphorus metabolism; E87.8 Other disorders of electrolyte and fluid balance, not elsewhere classified; F32.9 Major depressive disorder, single episode, unspecified; F41.9 Anxiety disorder, unspecified; G25.81 Restless legs syndrome; G40.909 Epilepsy, unspecified, not intractable, without status epilepticus; G89.29 Other chronic pain; M19.90 Unspecified osteoarthritis, unspecified site; F10.10 Alcohol abuse, uncomplicated; F17.200 Nicotine dependence, unspecified, uncomplicated; M25.511 Pain in right shoulder; I49.5 Sick sinus syndrome; I95.89 Other hypotension; K21.9 Gastro-esophageal reflux disease without esophagitis; Z87.19 Personal history of other diseases of the digestive system; Z79.899 Other long term (current) drug therapy; Z82.49 Family history of ischemic heart disease and other diseases of the circulatory system; Z83.3 Family history of diabetes mellitus; Z86.73 Personal history of transient ischemic attack (TIA), and cerebral infarction without residual deficits; Z90.49 Acquired absence of other specified parts of digestive tract; Z99.2 Dependence on renal dialysis; Z80.9 Family history of malignant neoplasm, unspecified; Z68.32 Body mass index [BMI] 32.0-32.9, adult
CPT/HCPCS: 36415; 71045; 78278; 80048; 80053; 82270; 82728; 83540; 83550; 83735; 83880; 84100; 84484; 85025; 86850; 86900; 86920; 93005; 93306; 93970; 96374; 99285; A9560; C9113; J0885; J1200; J7030; P9016

== ENCOUNTER 2019-12-19 06:00 | Inpatient (IN) | payer MEDICARE, MEDICAID ==
[~2019-12-19] VITALS: Ht 170.2 cm; Wt 89.4 kg
[2019-12-19] MEDS ORDERED: MORPHINE SULFATE 4 MG/ML CPJ (NOT FOR IM USE) IV STA (06:40)
[2019-12-19 07:06] LABS: BASOPHILS % 0.6 % (0.0-2.0); EOSINOPHILS % 1.7 % (0.0-5.0); HEMATOCRIT. 31.1 % (36.0-48.0); LYMPHOCYTES % 14.1 % (20.0-50.0); MEAN CORPUSCULAR HEMOGLOBIN 29.9 pg (28.0-32.0); MEAN CORPUSCULAR VOLUME 92.6 fL (81.0-99.0); MEAN PLATELET VOLUME 6.7 fl (7.4-10.4); MONOCYTES % 11.8 % (2.0-8.0); NEUTROPHILS % 71.8 % (40.0-76.0); PLATELET 127 x1000/uL (130-400); RED BLOOD CELL COUNT 3.36 mill/uL (4.2-5.4); RED CELL DISTRIBUTION WIDTH 16.1 % (11.6-14.6)
[2019-12-19 07:12] LABS: CHLORIDE 95 mEq/L (98-107)
[2019-12-19 08:00] VITALS: BP_SYST 123; BP_SYST 140; BP_DIAS 72; BP_DIAS 75
[2019-12-19 09:42] VITALS: BP 140/72
[2019-12-19] MEDS ORDERED: ONDANSETRON HCL 4MG/2ML INJ IV PRN (10:00)
[2019-12-19] MEDS ORDERED: DIPHENHYDRAMINE 50MG/ML VIAL IV PRN (10:00)
[2019-12-19] MEDS ORDERED: ACETAMINOPHEN 325MG TABLET PO PRN (10:00)
[2019-12-19 12:00] VITALS: BP 123/75
[2019-12-19] MEDS: LAMOTRIGINE 100MG TABLET PO SCH ×2 (12:01→21:09)
[2019-12-19] MEDS: LEVETIRACETAM 500MG TABLET PO SCH ×2 (12:01→21:09)
[2019-12-19] MEDS: ACETAMINOPHEN 325MG TABLET PO PRN (12:06)
[2019-12-19] MEDS: MIDODRINE HCL 2.5MG TABLET PO SCH ×2 (13:00→17:00)
[2019-12-19] MEDS ORDERED: HYDROCODONE/ACETAMINOPHEN 5/325MG TABLET PO PRN (13:15)
[2019-12-19] MEDS: DILTIAZEM HCL 30MG TABLET PO SCH ×2 (14:00→22:00)
[2019-12-19] MEDS: SODIUM CHLORIDE 0.9% INJ 3ML FLUSH IVF SCH ×2 (14:53→21:15)
[2019-12-19 16:00] VITALS: BP 122/75
[2019-12-19] MEDS ORDERED: PRED5TAB MT (16:04)
[2019-12-19] MEDS ORDERED: OMEP40CA12 MT (16:04)
[2019-12-19] MEDS ORDERED: MIDO10TA MT (16:04)
[2019-12-19] MEDS ORDERED: ATOR10TA69 MT (16:04)
[2019-12-19] MEDS ORDERED: ZOLPIDEM TARTRATE 5MG TABLET PO PRN (17:30)
[2019-12-19 20:47] VITALS: BP 110/56
[2019-12-19] MEDS ORDERED: FAMOTIDINE 20MG TABLET PO SCH (21:00)
[2019-12-19] MEDS ORDERED: ROPINIROLE HCL 1MG TABLET PO SCH (21:00)
[2019-12-19] MEDS ORDERED: MIRTAZAPINE 15MG TABLET PO SCH (21:00)
[2019-12-19] MEDS ORDERED: ATORVASTATIN CALCIUM 20MG TABLET PO SCH (21:00)
[2019-12-20 00:29] VITALS: BP 165/93
[2019-12-20] MEDS: DILTIAZEM HCL 30MG TABLET PO SCH ×2 (03:42→06:00)
[2019-12-20] MEDS: ACETAMINOPHEN 325MG TABLET PO PRN (03:47)
[2019-12-20 04:00] VITALS: BP 122/72
[2019-12-20] MEDS: SODIUM CHLORIDE 0.9% INJ 3ML FLUSH IVF SCH (06:22)
[2019-12-20 06:30] LABS: INR 1.1; PARTIAL THROMBOPLASTIN TIME 35.4 sec (23.4-31.0)
[2019-12-20 06:53] LABS: PHOSPHORUS 3.3 mg/dL (2.5-4.9)
[2019-12-20 06:58] LABS: HEMATOCRIT. 32.2 % (36.0-48.0); HEMOGLOBIN. 10.5 g/dL (12.0-16.0); MEAN CORPUSCULAR HEMOGLOBIN 30.4 pg (28.0-32.0); MEAN CORPUSCULAR VOLUME 92.8 fL (81.0-99.0); MEAN PLATELET VOLUME 7.6 fl (7.4-10.4); PLATELET 133 x1000/uL (130-400); RED BLOOD CELL COUNT 3.47 mill/uL (4.2-5.4); RED CELL DISTRIBUTION WIDTH 16.1 % (11.6-14.6)
[2019-12-20] MEDS: LAMOTRIGINE 100MG TABLET PO SCH (08:34)
[2019-12-20] MEDS: LEVETIRACETAM 500MG TABLET PO SCH (08:34)
[2019-12-20] MEDS: MIDODRINE HCL 2.5MG TABLET PO SCH ×2 (08:38→13:00)
[2019-12-20 08:43] VITALS: BP 128/73
[2019-12-20 12:00] VITALS: BP 128/71
[2019-12-20 12:51] LABS: PLATELET ESTIMATE NORMAL
[2019-12-20 14:24] VITALS: BP 128/71
== END 2019-12-20 15:40 | disposition home or self-care (01) | DRG 919 ==
LOC: ER 06:00 → 6WST 08:29 → ENRESERV 08:39 → 6WST 23:37 → 7WST 12-20 11:25
PROVIDERS: ADMIT Internal Medicine; ATTEND Internal Medicine
PROC: 5A1D70Z Performance of Urinary Filtration, Intermittent, Less than 6 Hours Per Day (ICD-10-PCS; principal; 2019-12-19)
DX: I97.638 Postprocedural hematoma of a circulatory system organ or structure following other circulatory system procedure (principal); N18.6 End stage renal disease; N25.81 Secondary hyperparathyroidism of renal origin; C64.9 Malignant neoplasm of unspecified kidney, except renal pelvis; I13.11 Hypertensive heart and chronic kidney disease without heart failure, with stage 5 chronic kidney disease, or end stage renal disease; E78.00 Pure hypercholesterolemia, unspecified; I49.5 Sick sinus syndrome; G40.909 Epilepsy, unspecified, not intractable, without status epilepticus; M19.90 Unspecified osteoarthritis, unspecified site; I48.91 Unspecified atrial fibrillation; F41.9 Anxiety disorder, unspecified; F32.9 Major depressive disorder, single episode, unspecified; E78.5 Hyperlipidemia, unspecified; G25.81 Restless legs syndrome; E83.39 Other disorders of phosphorus metabolism; G89.29 Other chronic pain; K21.9 Gastro-esophageal reflux disease without esophagitis; F10.20 Alcohol dependence, uncomplicated; D64.9 Anemia, unspecified; I95.9 Hypotension, unspecified; E83.51 Hypocalcemia; Z90.49 Acquired absence of other specified parts of digestive tract; Z95.0 Presence of cardiac pacemaker; Z79.899 Other long term (current) drug therapy; Z83.3 Family history of diabetes mellitus; Z82.49 Family history of ischemic heart disease and other diseases of the circulatory system; Z99.2 Dependence on renal dialysis; K57.90 Diverticulosis of intestine, part unspecified, without perforation or abscess without bleeding; Z80.8 Family history of malignant neoplasm of other organs or systems; Z85.528 Personal history of other malignant neoplasm of kidney; Y83.1 Surgical operation with implant of artificial internal device as the cause of abnormal reaction of the patient, or of later complication, without mention of misadventure at the time of the procedure; Y92.89 Other specified places as the place of occurrence of the external cause
CPT/HCPCS: 36415; 71045; 80048; 80053; 83735; 83880; 84100; 84484; 85025; 93005; 99285; A4565; J2270

== ENCOUNTER 2020-01-12 14:03 | Inpatient (IN) | payer MEDICARE, MEDICAID ==
[~2020-01-12] VITALS: Ht 167.6 cm; Wt 86.7 kg
[~2020-01-12 14:03] MED LIST changes: +ATOR10TA69 MT; +MIDO10TA MT; +OMEP40CA12 MT; +PRED5TAB MT
[2020-01-12] MEDS ORDERED: LIDOCAINE HCL/EPINEPHRINE 1%-EPI 1:100,000 30 ML VIAL INFIL ONE (15:45)
[2020-01-12] MEDS ORDERED: LIDOCAINE HCL/EPINEPHRINE 1%-EPI 1:100,000 20 ML VIAL INFIL SCH (15:55)
[2020-01-12] MEDS ORDERED: MORPHINE SULFATE 4 MG/ML CPJ (NOT FOR IM USE) IV ONE (19:00)
[2020-01-13 00:24] LABS: CHLORIDE 95 mEq/L (98-107)
[2020-01-13 00:26] LABS: INR 1.1; PARTIAL THROMBOPLASTIN TIME 36.6 sec (23.4-31.0)
[2020-01-13 00:38] LABS: BASOPHILS % 0.3 % (0.0-2.0); EOSINOPHILS % 1.7 % (0.0-5.0); HEMATOCRIT. 36.2 % (36.0-48.0); HEMOGLOBIN. 11.4 g/dL (12.0-16.0); LYMPHOCYTES % 18.1 % (20.0-50.0); MEAN CORPUSCULAR HEMOGLOBIN 28.5 pg (28.0-32.0); MEAN CORPUSCULAR VOLUME 90.2 fL (81.0-99.0); MEAN PLATELET VOLUME 8.2 fl (7.4-10.4); MONOCYTES % 12.4 % (2.0-8.0); NEUTROPHILS % 67.5 % (40.0-76.0); PLATELET 118 x1000/uL (130-400); RED BLOOD CELL COUNT 4.01 mill/uL (4.2-5.4); RED CELL DISTRIBUTION WIDTH 16.4 % (11.6-14.6)
[2020-01-13] MEDS ORDERED: NITROGLYCERIN 0.4MG TABLET SL SL PRN (02:30)
[2020-01-13] MEDS: MORPHINE SULFATE 2 MG/ML CPJ (NOT FOR IM USE) IV PRN ×2 (02:37→22:42)
[2020-01-13 09:00] VITALS: BP 132/69
[2020-01-13] MEDS ORDERED: ACETAMINOPHEN 325MG TABLET PO PRN (10:30)
[2020-01-13] MEDS: LEVETIRACETAM 500MG TABLET PO SCH ×2 (11:00→21:42)
[2020-01-13] MEDS: LAMOTRIGINE 100MG TABLET PO SCH ×2 (11:00→21:43)
[2020-01-13] MEDS ORDERED: DILTIAZEM HCL 30MG TABLET PO SCH (12:00)
[2020-01-13 12:05] VITALS: BP 123/73
[2020-01-13] MEDS: OMEPRAZOLE 20MG CAPSULE EXTENDED RELEASE PO SCH (12:44)
[2020-01-13] MEDS: CYANOCOBALAMIN 1000MCG TABLET PO SCH (12:44)
[2020-01-13] MEDS: SEVELAMER CARBONATE 800 MG TABLET PO SCH ×2 (12:44→18:15)
[2020-01-13] MEDS: FOLIC ACID 1MG TABLET PO SCH (12:44)
[2020-01-13] MEDS ORDERED: VANCOMYCIN 1 G PREMIX 200 ML IV ONE (14:30)
[2020-01-13] MEDS ORDERED: CEFAZOLIN 1000MG PREMIX 50 ML IV SCH (14:30)
[2020-01-13] MEDS: DILTIAZEM HCL 30MG TABLET PO SCH ×2 (15:36→21:42)
[2020-01-13 19:20] VITALS: BP 121/69
[2020-01-13 20:00] VITALS: BP 132/79
[2020-01-13] MEDS ORDERED: ATORVASTATIN CALCIUM 20MG TABLET PO SCH (21:00)
[2020-01-13] MEDS ORDERED: IOHEXOL-300 100 ML BOTTLE ONE (21:34)
[2020-01-13] MEDS: ROPINIROLE HCL 1MG TABLET PO SCH (21:42)
[2020-01-13] MEDS: ATORVASTATIN CALCIUM 10MG TABLET PO SCH (21:43)
[2020-01-14] VITALS: BP 114/75
[2020-01-14] MEDS: ZOLPIDEM TARTRATE 5MG TABLET PO PRN ×2 (02:01→23:56)
[2020-01-14 04:00] VITALS: BP 100/53
[2020-01-14] MEDS: DILTIAZEM HCL 30MG TABLET PO SCH ×3 (06:00→23:56)
[2020-01-14 07:55] LABS: BASOPHILS % 0.5 % (0.0-2.0); EOSINOPHILS % 2.3 % (0.0-5.0); HEMATOCRIT. 35.1 % (36.0-48.0); HEMOGLOBIN. 11.3 g/dL (12.0-16.0); LYMPHOCYTES % 12.4 % (20.0-50.0); MEAN CORPUSCULAR HEMOGLOBIN 28.9 pg (28.0-32.0); MEAN CORPUSCULAR VOLUME 90.1 fL (81.0-99.0); MEAN PLATELET VOLUME 7.9 fl (7.4-10.4); MONOCYTES % 12.4 % (2.0-8.0); NEUTROPHILS % 72.4 % (40.0-76.0); PLATELET 109 x1000/uL (130-400); RED BLOOD CELL COUNT 3.89 mill/uL (4.2-5.4)
[2020-01-14 08:00] VITALS: BP 119/66
[2020-01-14 08:15] LABS: PHOSPHORUS 5.5 mg/dL (2.5-4.9)
[2020-01-14] MEDS ORDERED: CEFAZOLIN 2,000 MG in DEXT 5% WATER 100 ML IV SCH (09:00)
[2020-01-14] MEDS: POTASSIUM CHLORIDE 20MEQ TABLET SR PO SCH (11:24)
[2020-01-14] MEDS: FOLIC ACID 1MG TABLET PO SCH (11:24)
[2020-01-14] MEDS: OMEPRAZOLE 20MG CAPSULE EXTENDED RELEASE PO SCH (11:24)
[2020-01-14] MEDS: LAMOTRIGINE 100MG TABLET PO SCH (11:24)
[2020-01-14] MEDS: SEVELAMER CARBONATE 800 MG TABLET PO SCH ×3 (11:25→18:08)
[2020-01-14] MEDS: LEVETIRACETAM 500MG TABLET PO SCH ×2 (11:25→23:55)
[2020-01-14] MEDS: CYANOCOBALAMIN 1000MCG TABLET PO SCH (11:32)
[2020-01-14 12:00] VITALS: BP 108/65
[2020-01-14 16:00] VITALS: BP 161/74
[2020-01-14 20:00] VITALS: BP 119/60
[2020-01-14] MEDS: ROPINIROLE HCL 1MG TABLET PO SCH (23:55)
[2020-01-15] MEDS: ATORVASTATIN CALCIUM 10MG TABLET PO SCH (00:23)
[2020-01-15] MEDS: LAMOTRIGINE 100MG TABLET PO SCH ×2 (00:24→08:52)
[2020-01-15 00:48] VITALS: BP 128/62
[2020-01-15 04:00] VITALS: BP 104/53
[2020-01-15] MEDS: DILTIAZEM HCL 30MG TABLET PO SCH ×2 (06:00→13:10)
[2020-01-15 06:06] LABS: BASOPHILS % 0.8 % (0.0-2.0); EOSINOPHILS % 1.8 % (0.0-5.0); HEMOGLOBIN. 10.5 g/dL (12.0-16.0); LYMPHOCYTES % 10.4 % (20.0-50.0); MEAN CORPUSCULAR HEMOGLOBIN 29.1 pg (28.0-32.0); MEAN CORPUSCULAR VOLUME 89.2 fL (81.0-99.0); MEAN PLATELET VOLUME 7.8 fl (7.4-10.4); MONOCYTES % 12.6 % (2.0-8.0); NEUTROPHILS % 74.4 % (40.0-76.0); PLATELET 104 x1000/uL (130-400); RED BLOOD CELL COUNT 3.59 mill/uL (4.2-5.4); RED CELL DISTRIBUTION WIDTH 15.9 % (11.6-14.6)
[2020-01-15 06:38] LABS: PHOSPHORUS 4.5 mg/dL (2.5-4.9)
[2020-01-15] MEDS: POTASSIUM CHLORIDE 20MEQ TABLET SR PO SCH (08:52)
[2020-01-15] MEDS: FOLIC ACID 1MG TABLET PO SCH (08:52)
[2020-01-15] MEDS: CYANOCOBALAMIN 1000MCG TABLET PO SCH (08:52)
[2020-01-15] MEDS: LEVETIRACETAM 500MG TABLET PO SCH (08:52)
[2020-01-15] MEDS: SEVELAMER CARBONATE 800 MG TABLET PO SCH ×2 (08:52→13:09)
[2020-01-15] MEDS: OMEPRAZOLE 20MG CAPSULE EXTENDED RELEASE PO SCH (08:52)
[2020-01-15 12:00] VITALS: BP 110/61
[2020-01-15 15:00] VITALS: BP 112/53
[2020-01-15] MEDS ORDERED: DILTIAZEM HCL 30MG TABLET PO SCH (17:00)
[2020-01-15] MEDS ORDERED: LAMOTRIGINE 100MG TABLET PO SCH (17:00)
[2020-01-15] MEDS ORDERED: LEVETIRACETAM 500MG TABLET PO SCH (17:00)
[2020-01-15] MEDS ORDERED: SEVELAMER CARBONATE 800 MG TABLET PO SCH (17:00)
[2020-01-15] MEDS ORDERED: MIRTAZAPINE 15MG TABLET PO SCH (21:00)
[2020-01-15] MEDS ORDERED: ROPINIROLE HCL 1MG TABLET PO SCH (21:00)
[2020-01-16] MEDS ORDERED: ATORVASTATIN CALCIUM 10MG TABLET PO SCH (09:00)
[2020-01-16] MEDS ORDERED: CINACALCET HCL 30MG TABLET PO SCH (09:00)
[2020-01-16] MEDS ORDERED: PREDNISONE 5MG TABLET PO SCH (09:00)
[2020-01-16] MEDS ORDERED: OMEPRAZOLE 20MG CAPSULE EXTENDED RELEASE PO SCH (09:00)
== END 2020-01-15 16:25 | disposition home or self-care (01) | DRG 919 ==
LOC: ER 14:03 → 5WST 20:21 → EDBEDREQ 20:28 → ENRESERV 01-13 07:46 → 6WST 01-13 19:34
PROVIDERS: ADMIT Internal Medicine; ATTEND Internal Medicine
PROC: 0W983ZZ Drainage of Chest Wall, Percutaneous Approach (ICD-10-PCS; principal; 2020-01-12)
PROC: 5A1D70Z Performance of Urinary Filtration, Intermittent, Less than 6 Hours Per Day (ICD-10-PCS; 2020-01-14)
DX: L76.32 Postprocedural hematoma of skin and subcutaneous tissue following other procedure (principal); J96.90 Respiratory failure, unspecified, unspecified whether with hypoxia or hypercapnia; N18.6 End stage renal disease; E87.1 Hypo-osmolality and hyponatremia; I48.19 Other persistent atrial fibrillation; I13.2 Hypertensive heart and chronic kidney disease with heart failure and with stage 5 chronic kidney disease, or end stage renal disease; N25.81 Secondary hyperparathyroidism of renal origin; I50.42 Chronic combined systolic (congestive) and diastolic (congestive) heart failure; C64.2 Malignant neoplasm of left kidney, except renal pelvis; L76.34 Postprocedural seroma of skin and subcutaneous tissue following other procedure; D64.9 Anemia, unspecified; E78.00 Pure hypercholesterolemia, unspecified; E78.5 Hyperlipidemia, unspecified; F32.9 Major depressive disorder, single episode, unspecified; G25.81 Restless legs syndrome; G40.909 Epilepsy, unspecified, not intractable, without status epilepticus; G47.00 Insomnia, unspecified; I25.10 Atherosclerotic heart disease of native coronary artery without angina pectoris; I49.5 Sick sinus syndrome; K21.9 Gastro-esophageal reflux disease without esophagitis; M19.90 Unspecified osteoarthritis, unspecified site; I48.0 Paroxysmal atrial fibrillation; I95.9 Hypotension, unspecified; Y83.1 Surgical operation with implant of artificial internal device as the cause of abnormal reaction of the patient, or of later complication, without mention of misadventure at the time of the procedure; Z79.899 Other long term (current) drug therapy; Z99.2 Dependence on renal dialysis; Z82.41 Family history of sudden cardiac death; Z82.49 Family history of ischemic heart disease and other diseases of the circulatory system; Z95.0 Presence of cardiac pacemaker; Z90.49 Acquired absence of other specified parts of digestive tract; Y92.89 Other specified places as the place of occurrence of the external cause
CPT/HCPCS: 36415; 71045; 71260; 80048; 80053; 83735; 84100; 85025; 93005; 99285; J0690; J2270; J3370; J3490; J7060; Q9967

== ENCOUNTER 2020-08-13 20:16 | Emergency (ER) | payer MEDICARE, MEDICAID ==
[~2020-08-13] VITALS: Ht 162.6 cm; Wt 91.0 kg
[2020-08-13] MEDS ORDERED: SODIUM CHLORIDE 0.9% 1,000 ML IV ONE (20:45)
[2020-08-13 21:54] LABS: BASOPHILS % 0.4 % (0.0-2.0); EOSINOPHILS % 1.5 % (0.0-5.0); HEMOGLOBIN. 10.7 g/dL (12.0-16.0); LYMPHOCYTES % 14.8 % (20.0-50.0); MEAN CORPUSCULAR HEMOGLOBIN 29.4 pg (28.0-32.0); MEAN CORPUSCULAR VOLUME 90.5 fL (81.0-99.0); MEAN PLATELET VOLUME 8.1 fl (7.4-10.4); NEUTROPHILS % 70.3 % (40.0-76.0); PLATELET 91 x1000/uL (130-400); RED BLOOD CELL COUNT 3.64 mill/uL (4.2-5.4); RED CELL DISTRIBUTION WIDTH 18.4 % (11.6-14.6)
[2020-08-13 21:58] LABS: CHLORIDE 97 mEq/L (98-107)
[2020-08-13 22:13] LABS: INR 1.2; PARTIAL THROMBOPLASTIN TIME 38.6 sec (23.4-31.0); PROTHROMBIN TIME 12.4 sec (9.6-11.0)
[2020-08-13] MEDS ORDERED: POTASSIUM CHLORIDE 20MEQ/PACKET PO ONE (22:15)
[2020-08-13 22:35] VITALS: BP 146/80
== END 2020-08-14 03:54 | disposition home or self-care (01) ==
LOC: ER 20:16
DX: R04.0 Epistaxis (principal); D69.6 Thrombocytopenia, unspecified; I13.2 Hypertensive heart and chronic kidney disease with heart failure and with stage 5 chronic kidney disease, or end stage renal disease; I50.9 Heart failure, unspecified; N18.6 End stage renal disease; E11.22 Type 2 diabetes mellitus with diabetic chronic kidney disease; I48.91 Unspecified atrial fibrillation; Z99.2 Dependence on renal dialysis; Z90.49 Acquired absence of other specified parts of digestive tract; Z79.899 Other long term (current) drug therapy
CPT/HCPCS: 36415; 80053; 85025; 85610; 85730; 93005; 99284; J7030